=== PATIENT | female | born 1940 | race Caucasian/White ===

== ENCOUNTER 2021-10-27 13:24 | Inpatient (IN) | payer MEDICARE ==
[~2021-10-27] VITALS: Ht 152.4 cm; Wt 54.4 kg
--- NOTE | 2021-10-27 13:40 | NUR ---
COMMERCIAL SOLAR SALES CONSULTANT ADMITTING NOTES RECEIVED PATIENT IS AWAKE AND LYING COMFORTABLY IN [facility] BY 2 GALVANIZER ZINC @ 1340. PT IS EASY TO AROUSE, A/O X4. ON O2 AT 2LPM VIA NC, NO SOB OR NOTED. VITAL SIGNS IS WITHIN NORMAL RANGE. IV ACCESS R HAND 22G, AND SALINE LOCKED, INTACT, PATENT AND FLUSHING. SKIN IS INTACT AND NO WOUNDS NOTED AT THIS MOMENT. REPORT GIVEN BY RICCARDO PIERCE FROM [place] @0154. WILL CONTINUE TO MONITOR FOR MEIR.
[2021-10-27 16:00] VITALS: BP 99/39
[2021-10-27] MEDS ORDERED: MAG HYDROX/AL HYDROX/SIMETH 30 ML UDC PO PRN (16:00)
[2021-10-27] MEDS ORDERED: ONDANSETRON HCL/PF 4 MG/2 ML VIAL IVP PRN (16:00)
[2021-10-27] MEDS ORDERED: ACETAMINOPHEN 325 MG TABLET PO PRN (16:00)
[2021-10-27 16:17] VITALS: BP 99/39
[2021-10-27] MEDS ORDERED: Z GUARD REMEDY 4 OZ OINT TP PRN (17:00)
[2021-10-27 17:38] LABS: BASOPHILS % (AUTO) 0.6 % (0.0-2.0); EOSINOPHILS % (AUTO) 1.3 % (0.0-6.0); HEMATOCRIT 36 % (33-45); HEMOGLOBIN 12.1 g/dL (11.5-14.8); LYMPHOCYTES # (AUTO) 0.5 K/uL (0.8-4.8); LYMPHOCYTES % (AUTO) 9.8 % (20.0-44.0); MEAN CORPUSCULAR HGB CONC 34 g/dl (31.0-36.0); MEAN CORPUSCULAR VOLUME 105 fL (82-100); MONOCYTES # (AUTO) 0.5 K/uL (0.1-1.30); MONOCYTES % (AUTO) 10.3 % (2.0-12.0); NEUTROPHILS # (AUTO) 3.7 K/uL (1.8-8.9); PLATELET COUNT (AUTO) 58 K/uL (150-450); RED BLOOD CELL COUNT(AUTO) 3.44 MIL/uL (4.0-5.2); WHITE BLOOD COUNT (AUTO) 4.8 K/uL (4.3-11.0)
[2021-10-27 17:55] LABS: ALBUMIN 1.7 g/dL (3.4-5.0); BILIRUBIN,DIRECT 0.7 mg/dL (0.0-0.2); BILIRUBIN,TOTAL 1.9 mg/dL (0.2-1.0); CALCIUM, SERUM 7.4 mg/dL (8.5-10.1); POTASSIUM 4.5 mmol/L (3.5-5.1); TOTAL PROTEIN, SERUM 6.8 g/dL (6.4-8.2)
[2021-10-27 18:00] LABS: EOSINOPHILS % (MANUAL) 1 % (0-4); LYMPHOCYTES % (MANUAL) 10 % (16-48); MONOCYTES % (MANUAL) 10 % (0-11.0); NEUTROPHILS % (MANUAL) 79 (42-76)
[2021-10-27] MEDS: IV NS 0.9% 1,000 ML IV PRN (18:13)
[2021-10-27] MEDS: CEFTRIAXONE 1 G in IV D5W 50 ML IV SCH (18:14)
--- NOTE | 2021-10-27 19:00 | NUR ---
REAL ESTATE SALES MANAGER CLOSING NOTES PATIENT IS COMFORTABLY LYING DOWN IN BED, A,A/O X4 AND EASY TO AROUSE. ON O2 AT 2LPM VIA NC, NO SOB OR NOTED. VITAL SIGNS IS WITHIN NORMAL RANGE. IV ACCESS R HAND 22G, AND SALINE LOCKED, INTACT, PATENT AND FLUSHING. SKIN IS INTACT AND NO WOUNDS NOTED AT THIS MOMENT. SAFETY MEASURES IN PLACE: BED LOW AND LOCKED, SIDE RAILS UP X2, CALL LIGHT WITHIN REACH. ALL HIS ORDERED MET. WILL ENDORSE TO INCOMING SHIFT FOR MEIR.
--- NOTE | 2021-10-27 19:20 | NUR ---
MS RN OPENING NOTES: RECEIVED PATIENT IN BED, AWAKE, A/O X4. NO S/S OF DISTRESS NOTED. NO COMPLAIN OF PAIN. CALL LIGHT WITHIN REACH. BED ALARM ON. BED IN LOWEST AND LOCKED POSITION. HOB ELEVATED. WITH O2 AT 3L/MIN NASAL CANNULA.
[2021-10-27 20:00] VITALS: BP 127/57
[2021-10-27] MEDS ORDERED: MAGNESIUM HYDROXIDE 30 ML UDC PO PRN (22:00)
[2021-10-27 23:48] VITALS: BP 100/44
[2021-10-28 04:00] VITALS: BP 102/76
[2021-10-28] MEDS: IV NS 0.9% 1,000 ML IV PRN (06:02)
[2021-10-28] MEDS ORDERED: SPIR50TA5 PO (06:28)
[2021-10-28] MEDS ORDERED: LACT10SO3 PO (06:28)
[2021-10-28] MEDS ORDERED: CARV3.122 PO (06:28)
[2021-10-28] MEDS ORDERED: FURO20TA4 PO (06:28)
--- NOTE | 2021-10-28 07:15 | NUR ---
FIRE LIEUTENANT MARINE OPENING NOTES RECEIVED PATIENT AWAKE IN BED RESTING AT THIS TIME. ON 3L OF O2 VIA NC, NO S/S OF SOB OR C/O OF RESPIRATORY DISTRESS. A/O 4, NICARAGUAN SPEAKING, ABLE TO MAKE NEEDS KNOWN. IV ACCESS R WRIST #22 WITH NS @75 RUNNING. TELE MONITORING SINUS RHYTHM TO SINUS JOHNNA 60 HR AT THIS TIME, NO S/S OF CARDIAC DISTRESS. SKIN INTACT. SAFETY PRECAUTIONS IN PLACE: BED IN LOWEST, LOCKED POSITION, SIDE RAILS UPx2, AND BRAKES ON. TABLE AND CALL LIGHT WITHIN REACH.
[2021-10-28 07:49] LABS: EOSINOPHILS % (AUTO) 7.3 % (0.0-6.0); HEMATOCRIT 32 % (33-45); LYMPHOCYTES # (AUTO) 0.4 K/uL (0.8-4.8); LYMPHOCYTES % (AUTO) 14.8 % (20.0-44.0); MEAN CORPUSCULAR HGB CONC 35 g/dl (31.0-36.0); MEAN CORPUSCULAR VOLUME 104 fL (82-100); MONOCYTES # (AUTO) 0.4 K/uL (0.1-1.30); MONOCYTES % (AUTO) 13.2 % (2.0-12.0); NEUTROPHILS # (AUTO) 1.8 K/uL (1.8-8.9); NEUTROPHILS % (AUTO) 63.7 % (43.0-81.0); RED BLOOD CELL COUNT(AUTO) 3.05 MIL/uL (4.0-5.2); WHITE BLOOD COUNT (AUTO) 2.8 K/uL (4.3-11.0)
[2021-10-28 08:00] VITALS: BP 100/59
[2021-10-28 08:03] LABS: PLATELET COUNT (AUTO) 50 K/uL (150-450)
--- NOTE | 2021-10-28 08:10 | NUR ---
RN NOTES RECEIVED CRITICAL LAB PLAT:50 REPORTED BY MER LIRA @0801, DR. STEVENS NOTIFIED.
[2021-10-28 09:00] LABS: CALCIUM, SERUM 6.9 mg/dL (8.5-10.1); CREATININE 0.7 mg/dL (0.6-1.3); MAGNESIUM 1.9 mg/dL (1.8-2.4); PHOSPHORUS 2.9 mg/dL (2.5-4.9); POTASSIUM 4.5 mmol/L (3.5-5.1)
--- NOTE | 2021-10-28 10:06 | NUR ---
RN NOTES MRSA SPECIMEN COLLECTED FROM RIGHT NASAL SITE, SPECIMEN STORED AND LAB CALLED FOR PICK.
[2021-10-28] MEDS: CARVEDILOL 3.125 MG TABLET PO SCH ×2 (10:30→16:40)
[2021-10-28] MEDS: FUROSEMIDE 40 MG/4 ML VIAL IV SCH (10:58)
[2021-10-28] MEDS: SPIRONOLACTONE 25 MG TABLET PO SCH (10:58)
[2021-10-28 13:15] VITALS: BP 104/54
[2021-10-28] MEDS: CEFTRIAXONE 1 G in IV D5W 50 ML IV SCH (16:39)
--- NOTE | 2021-10-28 18:34 | NUR ---
RN NOTES NOTIFIED DR. STEVENS OF PT VTE SCORE OF 3, NO NEW ORDER AT THIS TIME. WILL CONTINUE TO MONITOR.
--- NOTE | 2021-10-28 18:40 | NUR ---
FOOD SERVICE UTILITY WORKER CLOSING NOTES PATIENT AWAKE IN BED RESTING [place] TV AT THIS TIME. STABLE 3L OF O2 VIA NC, NO S/S OF SOB OR C/O OF RESPIRATORY DISTRESS. A/O 4, NAMIBIAN SPEAKING, ABLE TO MAKE NEEDS KNOWN. IV ACCESS R WRIST #22 SL. ALL MEDICATIONS ADMINISTERED. TELE MONITORING SINUS RHYTHM 72 HR AT THIS TIME, NO S/S OF CARDIAC DISTRESS. SKIN INTACT. SAFETY PRECAUTIONS MAINTAINED: BED IN LOWEST, LOCKED POSITION, SIDE RAILS UPx2, AND BRAKES ON. TABLE AND CALL LIGHT WITHIN REACH. WILL ENDORSE TO NEXT SHIFT ANY MEIR.
--- NOTE | 2021-10-28 19:20 | NUR ---
SHIPYARD HELPER OPENING NOTES: RECEIVED PATIENT IN BED, AWAKE, A/O X4. NO S/S OF DISTRESS NOTED. NO COMPLAIN OF PAIN. CALL LIGHT WITHIN REACH. BED ALARM ON. BED IN LOWEST AND LOCKED POSITION. HOB ELEVATED. FAMILY MEMBERS AT THE BEDSIDE. ON TELE MONITOR WITH SINUS-65 WITH SLIGHTLY ELEVATED T-WAVE.
[2021-10-28 20:00] VITALS: BP 106/33
[2021-10-29] VITALS: BP 103/34
[2021-10-29 04:00] VITALS: BP 105/41
[2021-10-29 07:08] LABS: EOSINOPHILS % (AUTO) 9.2 % (0.0-6.0); HEMATOCRIT 34 % (33-45); HEMOGLOBIN 11.5 g/dL (11.5-14.8); LYMPHOCYTES # (AUTO) 0.6 K/uL (0.8-4.8); LYMPHOCYTES % (AUTO) 18.8 % (20.0-44.0); MEAN CORPUSCULAR HGB CONC 34 g/dl (31.0-36.0); MEAN CORPUSCULAR VOLUME 104 fL (82-100); MONOCYTES # (AUTO) 0.4 K/uL (0.1-1.30); NEUTROPHILS # (AUTO) 1.8 K/uL (1.8-8.9); PLATELET COUNT (AUTO) 59 K/uL (150-450); RED BLOOD CELL COUNT(AUTO) 3.23 MIL/uL (4.0-5.2); WHITE BLOOD COUNT (AUTO) 3.1 K/uL (4.3-11.0)
[2021-10-29 07:17] LABS: CALCIUM, SERUM 7.2 mg/dL (8.5-10.1); CREATININE 0.8 mg/dL (0.6-1.3); POTASSIUM 4.6 mmol/L (3.5-5.1)
[2021-10-29] MEDS: CARVEDILOL 3.125 MG TABLET PO SCH (09:00)
[2021-10-29] MEDS: SPIRONOLACTONE 25 MG TABLET PO SCH (09:00)
[2021-10-29] MEDS: FUROSEMIDE 40 MG/4 ML VIAL IV SCH (09:22)
--- NOTE | 2021-10-29 16:38 | NUR ---
PATIENT DISCHARGE TO HOME WITH OXYGEN/CONCENTRATOR, GIVEN DISCHARGE INSTRUCTION TO FAMILY MEMBERS. PATIENT IN STABLE CONDITION, IN NO ACUTE DISTRESS OBSERVED. AL VITAL SIGNS ARE IN NORMAL. REMOVED IV LINE BEFORE PATIENT LEFT FACILITY.
== END 2021-10-29 16:45 | disposition home or self-care (01) | DRG 432 ==
LOC: MED 13:24 → TELE 21:03
PROVIDERS: ADMIT Internal Medicine; ATTEND Internal Medicine
DX: K74.60 Unspecified cirrhosis of liver (principal); E43 Unspecified severe protein-calorie malnutrition; J96.01 Acute respiratory failure with hypoxia; D61.818 Other pancytopenia; E87.1 Hypo-osmolality and hyponatremia; E87.70 Fluid overload, unspecified; Z87.01 Personal history of pneumonia (recurrent); K75.81 Nonalcoholic steatohepatitis (NASH); E88.09 Other disorders of plasma-protein metabolism, not elsewhere classified; I10 Essential (primary) hypertension
CPT/HCPCS: 36415; 71045-TC; 80048-TC; 80053-TC; 80076-TC; 83735-TC; 83880; 84100-TC; 85025-TC; 87081-TC; 93307-TC; 94799-TC; G0378; J0696; J1940; J7030; J7060